=== PATIENT | female | born 1935 | race Caucasian/White ===

== ENCOUNTER 2017-03-05 00:13 | Day surgery (SDC) | payer MEDICARE, OTHER ==
[~2017-03-05] VITALS: Ht 162.6 cm; Wt 75.3 kg
[2017-03-05] VITALS (17 sets, daily range): BP systolic 90–155; BP diastolic 32–83; PULSE 60–64; RESP 12–23; O2SAT 93–100
[~2017-03-05 00:13] MED LIST: ALBU8.5H2 INHALATION; AMLO10TA3 PO; FRSM80T PO; GLYC-11 RC; LISI-567 PO; METO50TA3 PO; MONT10TA20 PO; NAPR220C11 PO; NITR0.4T SL; SODI126M NS; WARF5TAB7 PO; [UNRECOGNIZED DRUG - CODE] PO; [UNRECOGNIZED DRUG - REMARK] PO
[2017-03-05 08:43] LABS: BASOPHILS % (AUTO) 3.9 % (0-3); EOSINOPHILS % (AUTO) 9.3 % (0-5); MONOCYTES % (AUTO) 7.2 % (4-12); Mean Corpuscular Hemoglobin 31.2 pg (27.0-35.0); NEUTROPHILS % (AUTO) 58.4 % (40-74); Platelet Count 177 bil/L (150-400)
[2017-03-05 08:47] LABS: INR 1.68 ratio
--- NOTE | 2017-03-05 09:20 | NUR ---
Admitted for a Pacemaker/ICD generator change today by Dr Tavares. Patient understands today's procedure. Admits in 100% paced heart rhythm. Pt , "Will" understands plan of care.
[2017-03-05] MEDS ORDERED: Vancomycin 1,000mg/200 mL NS IV ONE (09:35)
[2017-03-05] MEDS ORDERED: Heparin 5,000 Units/500 mL NS Premix IV ONE (09:37)
[2017-03-05] MEDS ORDERED: Vancomycin 1,000 mg Inj ONE (09:38)
[2017-03-05] MEDS ORDERED: Bupivacaine-MPF 0.5% 30 mL Inj ONE (09:38)
[2017-03-05] MEDS ORDERED: 0.9% Sodium Chloride 250 ML ONE (09:38)
[2017-03-05] MEDS ORDERED: fentaNYL-PF 50 mCg/mL 2 mL Inj ONE (10:25)
[2017-03-05] MEDS ORDERED: Vancomycin Inj 1,000 MG in IV Premix 1 EACH IV SCH (10:41)
[2017-03-05] MEDS ORDERED: Furosemide 10 mg/mL 2 mL Inj ONE (11:32)
[2017-03-05] MEDS: 0.9% Sodium Chloride 1,000 ML IV SCH ×3 (11:49→23:52)
[2017-03-05] MEDS ORDERED: Ondansetron 2 mg/mL 2 mL Inj IVPUSH PRN (11:50)
--- NOTE | 2017-03-05 12:45 | NUR ---
Received/Recovery Received from cathead operator about 1145. VSS. Tele 100% paced. Dressing with small amt serosanguineous drainage. Ice pack placed and EKG done. Pt. had respiratory distress in cathead operator at end of case. Came back sitting straight up on 13 L O2 per oxymask. Stated breathing much better. Denies pain. Lasix 40mg IVP given in cathead operator per their report. Up to BSC x1 so far. SPO2 mid 90's on RA at rest Intermittent o2 use now at 8L oxy mask. Desated to high 70's on RA when getting back to bed from BS, was low to mid 90's going to BS. Taking ice chips and po fluids well. Refusing food at this time. S.O. at bedside and updated. Continue to monitor as ordered. States she feels she is breathing at baseline now. See EMR.
--- NOTE | 2017-03-05 14:25 | OP ---
[address] [address] OPERATIVE REPORT PATIENT: SHANAE SPRING : 1935 MR#: [id number] ADMIT: 03/05/2017 JOB ID: [id number] DATE OF SURGERY: 03/05/2017 PREOPERATIVE DIAGNOSIS(ES): 1. Implantable cardioverter-defibrillator battery depletion. 2. Cardiomyopathy. POSTOPERATIVE DIAGNOSIS(ES): 1. Implantable cardioverter-defibrillator battery depletion. 2. Cardiomyopathy. PROCEDURE PERFORMED: Dual-chamber implantable cardioverter-defibrillator generator replacement. SURGEON: Kings Tavares MD, electrophysiology. SCHOOL LEADER: Golden Gongora PA-C. IMPLANTED DEVICE: Medtronic Evera MRI XT pulse generator, model [id number], serial #[id number]. EXPLANTED DEVICE: Medtronic Juan Francisco II, model [id number], serial #[id number]. DEVICES: 1. Right atrial lead, Medtronic 5076, 52 cm, serial #[id number]. 2. RV lead dual coil VF1 ICD lead, Medtronic 6947, 65 cm, serial #[id number]. ANESTHESIA: Bolus dosing of Versed and fentanyl with appropriate level of sedation. INDICATION: The patient is a pleasant, 81-year-old with cardiomyopathy and a dual-chamber ICD that has reached ELISA. After discussion of the risks and benefits of generator replacement, she opted to proceed. PROCEDURAL DESCRIPTION: Following informed signed consent, the patient was taken to where she was prepped in usual sterile fashion. The left infraclavicular surgical scar was infiltrated with 40 cc of a 50/50 mixture of bupivacaine and lidocaine. Once adequate anesthesia had been achieved, a 4 cm transverse incision was performed overlying previous surgical scar. Dissection was carried down to the capsule and the generator and leads were freed loose of adhesions. The pocket was copiously with irrigated with antibiotic solution. The leads were disconnected from the generator. A new generator was brought to the field and the chronic leads were connected to the new generator. The leads were tested through the generator and showed INCOMPLETE: Dictation ends here.
--- NOTE | 2017-03-05 15:04 | NUR ---
Recovery post generator change completed. Breathing has improved post procedure - UOP of 800cc post Lasix. On room air with Sao2 ranging 95-98%. 100% paced rate set at 60.
--- NOTE | 2017-03-05 15:05 | OP ---
[address] [address] OPERATIVE REPORT PATIENT: SHANAE SPRING : 1935 MR#: [id number] ADMIT: 03/05/2017 JOB ID: [id number] DATE OF SURGERY: 03/05/2017 PREOPERATIVE DIAGNOSIS(ES): 1. Implantable cardioverter-defibrillator battery depletion. 2. Cardiomyopathy. POSTOPERATIVE DIAGNOSIS(ES): 1. Implantable cardioverter-defibrillator battery depletion. 2. Cardiomyopathy. PROCEDURE PERFORMED: Dual-chamber implantable cardioverter-defibrillator generator replacement. SURGEON: Kings Tavares MD, electrophysiology. SENIOR IT AUDITOR: Golden Gongora PA-C. IMPLANTED DEVICE: Medtronic Evera MRI ICD model [id number], serial #[id number]. EXPLANTED DEVICE: Medtronic Juan Francisco II, model [id number], serial #[id number]. CHRONIC DEVICES: 1. Right atrial lead, Medtronic 5076, 52 cm, serial #[id number]. 2. RV lead dual coil DF2 Medtronic 6947, 65 cm, serial #[id number]. ANESTHESIA: Bolus dosing of Versed and fentanyl were utilized for appropriate level of sedation. INDICATION: The patient is a pleasant 81-year-old with cardiomyopathy, dual-chamber ICD that has reached ELISA. After discussion of risks and benefits of generator replacement, she opted to proceed. PROCEDURAL DESCRIPTION: Following informed signed consent, the patient was taken to the EP laboratory in a fasting state where she was prepped and draped in usual sterile fashion. The left infraclavicular surgical scar was infiltrated with 40 cc of a 50/50 mixture of bupivacaine and lidocaine. Once adequate anesthesia achieved, a 4 cm incision was performed overlying the previous surgical scar. Dissection was carried down to the capsule and the generator and leads were freed loose of adhesions. The leads were disconnected from the old generator and inspected and showed to be intact. The pocket was copiously irrigated with antibiotic solution. The chronic leads were connected to the new generator after which the leads were tested and showed excellent lead parameters. The entire system was replaced into the capsule and the generator was secured to the floor of the capsule using two 0 Ti-Cron sutures, one medial and one lateral. Incision was then closed with two layers of deep sutures with 2-0 Polysorb. In the middle of closure, the patient became quite dyspneic and would not tolerate supplemental oxygen. She became dyspneic and needed to sit up. We had to urgently sit her up in bed and could not finish the last layer of suture. We have to undrape the patient. We kept the region sterile as possible. She was given supplemental oxygen and a dose of intravenous Lasix, after which she felt better and her saturation increased to 99%. The final closure of the incision was done with Dermabond as well as Steri-Strips. A sterile incisional cover was also placed. The patient was transferred to the [facility] for monitoring and bedrest. COMPLICATIONS: See above regarding respiratory distress and ultimate need for aborting the procedure prematurely without final closure of the incision, as well as requiring intravenous Lasix. BLOOD LOSS: Negligible. DEVICE MEASURED DATA: 1. Right atrial lead, 2.0 mV, 456 ohms, 0.75 V at 0.4 msec. 2. RV lead, 20 mV, 437 ohms, 42 ohms, 51 ohms, 0.75 V at 0.4 msec. FINAL PROGRAM PARAMETERS: 1. DDDR 60-130 beats per minute with MVP on. 2. VF zone at 182 beats per minute. Initial ATP during charge 35 joules x6. 3. Fast VT zone at 222 beats per minute. Two bursts at 88%. Two ramps at 91% followed by 35 joules x4. 4. VT monitor zone 150 beats per minute. IMPRESSION: Successful dual-chamber implantable cardioverter-defibrillator generator replacement. PLAN: 1. Recovery in the [facility]. 2. Resume home medications. 3. Monitoring overnight. 4. Intravenous vancomycin through the 1st 24 hours. 5. Doxycycline 100 mg p.o. daily x7 days. 6. Wound check in one week. ATTENDING STATEMENT: Kings Cassidy MD, electrophysiology, was present for and supervised/performed all aspects of this procedure.
--- NOTE | 2017-03-05 16:54 | NUR ---
Transfer Pt transferred from [facility] at 1645. Tele placed. VSS. Pt states no pain. Dressing to left upper chest c/d/i with minimal dried drainage. Will continue to monior. Oriented to room and call light. Report given by Maggy LIGHT.
[2017-03-05] MEDS ORDERED: Albuterol 2.5 mg/3 mL Inhalation Solution NEB PRN (16:55)
--- NOTE | 2017-03-05 16:56 | NUR ---
Patient transferred by bed to room 2001. Left upper chest wall dressing is intact soft and non-tender. Area of scant ooze has not changed, and patient has procedural pain complaints. 100% paced rate 60. Breathing improved at rest, but has some slight audible wheezing getting up from bed to use Bed side commode. PRN order for albuterol neb if needed - patient uses Hand held albuterol prn at home - current history of smoking 1 pack a day. Transfer report given to RN for room 2001.
[2017-03-05] MEDS ORDERED: Sodium Chloride NAS 45 mL Spray NASAL PRN (18:50)
--- NOTE | 2017-03-05 23:07 | PCM.CONPHA ---
Subjective Date of Service: Mar 05, 2017 Requesting Provider: Kings Tavares MD Reason for Pharmacy Consult: Anticoagulation Management Objective Vital Signs Date Time Temp Pulse Resp B/P Pulse Ox O2 Delivery O2 Flow Rate FiO2 03/05/17 19:20 36.4 62 17 152/57 97 Room Air 03/05/17 16:57 60 03/05/17 16:53 36.7 60 12 136/83 97 Room Air 03/05/17 15:52 60 17 90/32 95 Room Air 03/05/17 15:52 60 13 134/44 95 Room Air 03/05/17 15:02 60 17 90/32 95 Room Air 03/05/17 15:02 60 13 90/32 95 Room Air 03/05/17 14:02 60 17 107/39 95 Room Air 03/05/17 14:02 60 17 126/41 96 Room Air 03/05/17 13:30 60 17 107/39 95 Room Air 03/05/17 13:30 60 17 107/39 95 Room Air 03/05/17 13:00 60 18 131/48 98 Room Air 03/05/17 13:00 60 18 131/48 98 Room Air 03/05/17 12:45 60 20 110/69 96 Room Air 03/05/17 12:45 60 20 110/69 96 Room Air 03/05/17 12:30 60 16 138/56 100 Oxy Mask 10.00 03/05/17 12:30 60 16 138/56 100 OxyMask 10.00 03/05/17 12:15 60 20 137/47 100 OxyMask 10.00 03/05/17 12:15 60 20 137/47 100 Oxy Mask 10.00 03/05/17 12:00 60 20 133/48 98 Oxy Mask 10.00 03/05/17 12:00 60 20 133/48 98 OxyMask 10.00 03/05/17 11:55 60 18 138/42 98 OxyMask 11.00 03/05/17 11:55 60 18 138/42 98 Oxy Mask 11.00 03/05/17 11:50 61 23 151/56 99 Oxy Mask 13.00 03/05/17 11:50 61 23 151/56 99 OxyMask 13.00 03/05/17 11:45 64 21 132/52 98 OxyMask 13.00 03/05/17 11:45 64 21 132/52 98 Oxy Mask 13.00 03/05/17 08:42 61 16 155/66 96 Room Air Weight (Kilograms): 74.800 Height (Feet): 5 Height (Inches): 4.00 Test 03/05/17 08:29 White Blood Count 8.8th/mm3 (3.8-10.1) Red Blood Count 3.46mil/mm3 (3.90-5.20) Hemoglobin 10.8g/dL (12.0-15.6) Hematocrit 34.6% (35.0-46.0) Mean Corpuscular Volume 100.0fL (81-100) Mean Corpuscular Hemoglobin 31.2pg (27.0-35.0) Mean Corpuscular Hemoglobin Concent 31.2% (32.0-37.0) Red Cell Distribution Width 15.6% (12.3-15.4) Platelet Count 177bil/L (150-400) Neutrophils (%) (Auto) 58.4% (40-74) Lymphocytes (%) (Auto) 21.0% (14-46) Monocytes (%) (Auto) 7.2% (4-12) Eosinophils (%) (Auto) 9.3% (0-5) Basophils (%) (Auto) 3.9% (0-3) Prothrombin Time 18.2sec (8.1-12.5) Prothromb Time International Ratio 1.68ratio Sodium Level 138mEq/L (134-144) Potassium Level 4.4mEq/L (3.5-5.2) Chloride Level 102mEq/L (97-108) Carbon Dioxide Level 22mmol/L (18-29) Blood Urea Nitrogen 21mg/dL (8-27) Creatinine 1.40mg/dL (0.57-1.00) Estimat Glomerular Filtration Rate 52mL/min (>59) Glucose Level 105mg/dL (60-99) Calcium Level 8.9mg/dL (8.5-10.1) Assessment/Plan Assessment/Plan Warfarin per Rx Indication: INR today 1.68; gave home dose of 2.5mg Daily INR ordered Gallito Keys PharmD Mar 05, 2017 23:07
[2017-03-05] MEDS ORDERED: Vancomycin Inj 1,000 MG in IV Premix 1 EACH IV ONE (23:50)
[2017-03-06 00:32] VITALS: PULSE 60
[2017-03-06 03:24] LABS: INR 1.96 ratio
[2017-03-06 03:54] VITALS: BP 142/51; PULSE 60; RESP 16; O2SAT 92
--- NOTE | 2017-03-06 04:46 | NUR ---
Cardiac: Tele A paced 60s overnight, BP stable. pt denies any chest pain/ discomfort. pacer site asymptomatic, Left arm precautions reviewed.
[2017-03-06 09:09] VITALS: BP 139/70; PULSE 62; RESP 18; O2SAT 96
--- NOTE | 2017-03-06 09:34 | PCM.DIMED ---
Discharge Instructions Date of Service Mar 06, 2017 Dates of Hospitalization Discharge Diagnosis Discharge Diagnosis Ischemic Cardiomyopathy Paroxysmal Atrial Fibrillation CAD Hypertension COPD Diet Low fat, Low Sodium, Heart Healthy Activity Other (To prevent infection, keep incision dry one week. Do not extend left elbow high above shoulder for one month. Do not lift, push or pull more than 10 lbs for one month.) Call your provider Fever or Chills, Bleeding, Excessive diarrhea Patient Instructions Follow-up in: 1 week Mid-level Provider (F9): Golden Gongora PA-C Follow-up with Mid-level in: 6 weeks Golden Gongora PA-C Mar 06, 2017 09:34
[2017-03-06] MEDS ORDERED: CEPH-512 PO (09:50)
--- NOTE | 2017-03-06 10:31 | DIS ---
[address] [address] DISCHARGE SUMMARY PATIENT: SHANAE SPRING : 1935 MR#: [id number] ADMIT: 03/05/2017 JOB ID: [id number] DIS: 03/06/2017 REASON FOR ADMISSION: Defibrillator replacement due to battery depletion. BRIEF HISTORY: The patient is a pleasant, 81-year-old woman, with ischemic heart disease, status post bypass grafting, and who has an ischemic cardiomyopathy. She also has paroxysmal atrial fibrillation, and her dual-chamber ICD battery has reached its anticipated elective replacement time. She has been feeling well overall and is without chest pain, pressure or discomfort, and no lightheadedness or syncope. COURSE IN HOSPITAL: The patient was admitted to the [facility] and taken to the cleaner laboratory equipment, where she underwent replacement of the ICD. The atrial and ventricular leads were tested and found to be in good working order, with good thresholds and lead impedances. The new ICD was attached to the old leads and the pocket suturing began, but she began feeling very short of breath. Her O2 saturations progressively dropped from the mid 90s down to 80, and as quick as we could, we sat her up in bed and high-flow oxygen was delivered via mask. Thankfully, she recovered and her O2 sats climbed back up to 98%. The procedure was finished with Dermabond and Steri-Strips, and she was then transferred back to the [facility] for further recovery. She did well there and maintained her oxygen saturation, and initially was back on room air with O2 sats in the 96 range. She did well overnight, and had no problems with breathing. In the morning, she is sitting upright in bed, on room air, has good oxygenation. Her incision site is closed and there is no hematoma. The Steri-Strips and cover bandage were left in place and she was instructed to please keep it dry for one week. She felt well for discharge home. DISPOSITION: The patient was discharged home in good condition, with a followup appointment at the [facility] Cardiology office in about 10 days. She will take medications as prescribed and follow her usual heart healthy diet. She was asked to keep the incision dry for one week and not to extend her left arm high above her head for one month, and not to lift, push or pull more than 10 pounds with the left arm for one month. DISCHARGE MEDICATIONS: 1. Cephalexin 500 mg b.i.d. for one week. 2. ProAir inhaler, two puffs p.r.n. shortness of breath. 3. Amlodipine 10 mg daily. 4. Furosemide 80 mg daily. 5. Glycerin, one each of rectal suppository p.r.n. constipation. 6. Lactase 3000 units p.r.n. milk digested. 7. Lisinopril 20 mg b.i.d. 8. Metoprolol tartrate 50 mg b.i.d. 9. Naproxen 220 mg q.12 h. 10. Nitroglycerin sublingual 0.4 mg p.r.n. chest pain. 11. Sodium chloride nasal spray, 1 spray daily p.r.n. congestion. 12. Warfarin 2.5 mg each evening, or as directed by our Anticoagulation Clinic. FINAL DIAGNOSES: 1. Ischemic cardiomyopathy. 2. Paroxysmal atrial fibrillation. 3. Coronary artery disease. 4. Hypertension. 5. Chronic obstructive pulmonary disease. [facility]
--- NOTE | 2017-03-06 11:17 | NUR ---
Discharge Patient left unit via wheelchair with RN in a stable condition. Both IV's DC'd intact, tele removed, all personal belongings with patient. New medication of Cephalexin discussed, taking it twice a day until it is gone for prophylaxis post new pacemaker insertion, patient verbalized understanding. All other medications continued per medication reconciliation with next due times written and discussed -- verbalized understanding. Follow up with cardiology in one week discussed, no appointment scheduled -- instructed patient to call office tomorrow (03/07) to schedule follow up appointment. Per PAC Matista, patient does not need to wear sling since no new leads were placed. Small amount of old drainage on island dressing, mild bruising, patient reports pain as tolerable, area soft with no signs of hematoma.
== END 2017-03-06 10:30 | disposition home or self-care (01) ==
LOC: SOUO 00:13 → PCC 16:35 → SOUO 03-06 10:30
PROVIDERS: ATTEND Internal Medicine Cardiovascular Disease
DX: Z45.02 Encounter for adjustment and management of automatic implantable cardiac defibrillator (principal); I25.5 Ischemic cardiomyopathy; I48.0 Paroxysmal atrial fibrillation; I25.10 Atherosclerotic heart disease of native coronary artery without angina pectoris; J95.88 Other intraoperative complications of respiratory system, not elsewhere classified; J44.9 Chronic obstructive pulmonary disease, unspecified; I10 Essential (primary) hypertension; F17.200 Nicotine dependence, unspecified, uncomplicated; I73.9 Peripheral vascular disease, unspecified; E78.5 Hyperlipidemia, unspecified; Z95.1 Presence of aortocoronary bypass graft; Z95.5 Presence of coronary angioplasty implant and graft; Z79.01 Long term (current) use of anticoagulants; Y83.1 Surgical operation with implant of artificial internal device as the cause of abnormal reaction of the patient, or of later complication, without mention of misadventure at the time of the procedure; Y92.234 Operating room of hospital as the place of occurrence of the external cause
CPT/HCPCS: 33263; 80048; 85025; 85610; 93005; 99152; 99153; C1721; J1644; J1940; J2250; J3010; J3370; J7050

== ENCOUNTER 2017-06-16 16:18 | Emergency (ER) | payer MEDICARE, OTHER ==
[~2017-06-16] VITALS: Ht 163.8 cm; Wt 80.0 kg
[~2017-06-16 16:18] MED LIST changes: +CEPH-512 PO; -MONT10TA20 PO
[2017-06-16 16:26] VITALS: BP 154/41; PULSE 63; RESP 10; O2SAT 96
--- NOTE | 2017-06-16 16:45 | ED.REPORT ---
HPI-Back Pain 40 and Over Date of Service Jun 16, 2017 ED Provider: Lul Orozco MD Pt is an 82 y/o female anticoagulated on Warfarin w/ a hx of chronic back pain, HTN, HLD, CHF, CAD, presenting to the ED via EMS with her c/o lumbar back pain, worse over the past 4 days after lifting objects while moving residences. She has been experiencing this pain intermittently for 25 years, and has been worse for the past 4 days. Pt denies bowel or bladder incontinence , lower extremity numbness or weakness, dysuria, any recent trauma. Nursing Notes Stated Complaint: BACK PAIN Chief Complaint: Back Pain or Injury Nursing Notes Reviewed: Yes Allergies: Coded Allergies: No Known Allergies (Verified Allergy, Mild, 03/05/17) Uncoded Allergies: No Known Allergies (Allergy, Mild, 06/17/04) Opiate Agonists (Narcotics) (Adverse Reaction, Mild, 03/05/17) Pt is scared of becoming additcted to pain medication - she has not had an adverse reaction to narcotics. Scheduled Amlodipine (Amlodipine) 10 Mg Tablet 10 MG PO DAILY Cephalexin (Keflex) 500 Mg Capsule 500 MG PO BID Furosemide (Furosemide) 80 Mg Tab 80 MG PO DAILY Lisinopril (Lisinopril) 20 Mg Tablet 20 MG PO BID Metoprolol Tartrate (Metoprolol Tartrate) 50 Mg Tablet 50 MG PO BID Warfarin Sodium (Warfarin Sodium) 5 Mg Tablet 2.5 MG PO HS Scheduled PRN ([acid controlled]) 10 MG PO DAILY PRN PRN allergies Albuterol HFA (Proair HFA) 8.5 Gm Hfa.aer.ad 2 PUFFS INHALATION Q4H PRN PRN For Shortness of Breath Glycerin (Glycerin) 1 Each Supp.rect 1 EACH RC DAILY PRN PRN For Constipation Lactase (Dairy Relief) 3,000 Unit Tablet 3,000 UNIT PO ACHS PRN PRN Milk Digestion Naproxen Sodium (Aleve) 220 Mg Capsule 220 MG PO q12 hours PRN PRN For Pain Nitroglycerin SL (Nitrostat) 0.4 Mg Tab.subl 0.4 MG SL Q5MIN PRN PRN For Chest Pain Sodium Chloride (Saline Nasal Mist) 126 Ml Mist 1 SPRAYS NS DAILY PRN PRN For Congestion General Time Seen by MD: 16:32 Chief Complaint Lumbar pain Hx Obtained From: Patient, EMS Arrived By: Ambulance Sudden in Onset?: No Onset Occurred: 4 days ago Symptom Duration: Since onset Caused by: Aggravated old injury Location: : Perispinal lumbar Quality: Painful Severity: Current: Moderate Severity: Maximum: Severe Similar Sx Previous: Yes Past Medical History Past Medical History Chronic back pain Chronic tobacco use HTN CAD w/ DC A-fib on Warfarin CHF Hyperlipidemia Past Surgical History CABG x2 Smoking History Current Every Day Smoker Social History Alcohol Use: Denies alcohol use Drug Use: Denies drug use Ambulatory Status Independent Review of Systems Musculoskeletal: Reports: Joint pain, Lumbar pain Neurologic: Denies: Bladder dysfunction, Bowel dysfunction, Numbness, Weakness Complete sys rev & neg: except as marked. Physical Exam Initial Vital Signs Vital Signs (First) Date Time Temp Pulse Resp B/P Pulse Ox O2 Delivery O2 Flow Rate FiO2 06/16/17 16:26 36.7 63 10 154/41 96 Room Air Initial VS: Reviewed, Vital signs normal Head / Eyes: Atraumatic, Normocephalic, PERRL ENT: Mucous membranes moist, Conjunctiva normal, No scleral icterus Neck: Supple, Full range of motion Skin: Warm, Dry, No cyanosis Psychiatric: Mood/affect normal, Behavior normal, Normal thought content General/Constitutional: Awake, Alert, No acute distress, Cooperative, Not toxic appearing Appearance / Presentation: Positive: Uncomfortable Respiratory / Chest: Breath sounds NL, Breath sounds = bilat, No respiratory distress, No rales, No rhonchi, No wheezing Cardiovascular: Heart rate NL, Regular rhythm, Heart sounds NL, No murmurs Abdomen: Atraumatic, Soft, Non-tender Back: Full range of motion, No midline vertebral tend Right lower back tenderness Neurologic: Oriented X3, Speech NL, No motor deficits, No sensory deficits, Memory NL Lower Extremity / Pelvis / MS: No deformity, Neurologic intact, Vascular intact Tenderness with ROM of the right hip Interpretation & Diagnostics Lab Results Interpretation Test 06/16/17 18:00 Hold Urine Received (Received) X-Ray Interpretation Xray Interpretation: IMPRESSION: Mild bilateral hip joint degeneration. Dictated by: Mal Suarez M.D. on 06/16/2017 at 18:20 Approved by: Mal Suarez M.D. on 06/16/2017 at 18:21 X-Ray Ordered: Pelvis, Hip right Interpretation / Wet Read by: Interpret - Radiologist Re-Eval/Medical Decision Med Decision/Clinical Course 82-year-old female chronic low back pain presenting with her typical chronic low back pain after heavy lifting while moving. She reports she has been lifting heavy objects in with right lower back pain. She denies any urinary symptoms. No red flag symptoms. He has diffuse right lower back tenderness. She has no midline tenderness. Her neurological examination is normal bilateral lower extremities. Urine is negative for infection. She did have some tenderness on range of motion of the right hip initially which resolved on repeat exam. X-ray was obtained which showed no fracture. She was ambulatory. Suspect this is an acute exacerbation of her chronic low back pain due to recent heavy lifting. She felt much better with Toradol. She was discharged home with plans to take Aleve for pain as needed. She is advised to follow-up the primary doctor for possible physical therapy referral. Advised no heavy lifting until pain resolves. Return precautions if any weakness numbness tingling, incontinence, saddle anesthesia, fevers, nausea vomiting, any other new or worsening symptoms. Source of Hx: Old records Re-Evaluation/Progress : Time of Eval: 19:06 Re-Evaluation/Progress Note: Pt rechecked. Informed pt of plan for discharge. Pt understands and agrees with plan for discharge. F/U instructions and RTER warnings given. All questions addressed. Counseled Regarding: Diagnosis, Need for follow-up, When/why to return to ED Discharge & Departure Impression: Primary Impression: Low back strain Encounter type: initial encounter Qualified Code: S39.012A - Strain of muscle, fascia and tendon of lower back, initial encounter Additional Impressions: Exacerbation of chronic back pain Degenerative joint disease (DJD) of hip Osteoarthritis type: unspecified Laterality: bilateral Qualified Code: M16.0 - Bilateral primary osteoarthritis of hip Disposition: Home Discharge Condition All VS Reviewed: Yes Condition: Stable Patient Instructions: Acute Low Back Pain (ED), Low Back Strain (ED) Additional Instructions: There was no sign of fracture in your hip. Take Tylenol or Alleve as directed for pain. I recommend following-up with a physical therapist and your primary care doctor. Call tomorrow to set up an appointment. No heavy lifting until this improves. Ice your back 3 times a day for 20 minutes at a time. Return to the emergency department if you experience bowel or bladder incontinence, numbness or weakness of your legs, trouble walking different than your usual, fever, or for other concerning symptoms. Referrals: Maira Gonzalez (PCP) Scribe Attestation Portions of this note were transcribed by Elmer Lan. I, Dr. Orozco personally performed the history, physical exam and medical decision-making; I reviewed and confirmed the accuracy of the information in the transcribed note. copies to: Maira Gonzalez Ben M MD Jun 16, 2017 16:45 ELMER LAN Jun 16, 2017 17:07
--- NOTE | 2017-06-16 18:23 | DRSVH ---
PROCEDURE: X-RAY PELVIS W/LAT HIP (RT) ([id number]) INDICATIONS: 82 year-old female with right hip pain. TECHNIQUE: AP pelvis with lateral view(s) of the right hip(s). COMPARISON: None. FINDINGS: Bones: No fractures or dislocations. Pelvic ring appears intact. There is mild bilateral hip joint degeneration. No suspicious bony lesions. Soft tissues: The visualized bowel gas pattern is normal. No suspicious soft tissue calcifications. IMPRESSION: Mild bilateral hip joint degeneration. Dictated by: Mal Suarez M.D. on 06/16/2017 at 18:20 Approved by: Mal Suarez M.D. on 06/16/2017 at 18:21
[2017-06-16 19:28] VITALS: BP 136/42; PULSE 62; RESP 14; O2SAT 97
== END 2017-06-16 20:24 | disposition home or self-care (01) ==
LOC: EDUNIT# 16:18 → SED 16:18 → EDBD 16:18 → SED 20:24
DX: S39.012A Strain of muscle, fascia and tendon of lower back, initial encounter (principal); G89.29 Other chronic pain; M16.0 Bilateral primary osteoarthritis of hip; X50.0XXA Overexertion from strenuous movement or load, initial encounter; Y93.E6 Activity, residential relocation; Y99.8 Other external cause status; Y92.018 Other place in single-family (private) house as the place of occurrence of the external cause; I48.91 Unspecified atrial fibrillation; I10 Essential (primary) hypertension; E78.5 Hyperlipidemia, unspecified; I50.9 Heart failure, unspecified; I25.10 Atherosclerotic heart disease of native coronary artery without angina pectoris; F17.200 Nicotine dependence, unspecified, uncomplicated; Z95.1 Presence of aortocoronary bypass graft; Z79.01 Long term (current) use of anticoagulants; Z79.51 Long term (current) use of inhaled steroids
CPT/HCPCS: 73501; 96374; 99284; J1885